=== PATIENT | male | born 1995 | race Two or more races ===

== ENCOUNTER 2018-10-24 17:33 | Emergency (ER) | payer OTHER, MEDICAID ==
[2018-10-24 17:46] VITALS: BP 144/84
[2018-10-24 18:43] LABS: Amphetamine Screen, Urine POSITIVE (NEGATIVE); Barbiturate Scree,Urine NEGATIVE (NEGATIVE); Benzodiazephine Screen, Urine NEGATIVE (NEGATIVE); Cannabinoid Screen, Urine NEGATIVE (NEGATIVE); Cocaine Screen, Urine NEGATIVE (NEGATIVE); Opiate Scree,Urine NEGATIVE (NEGATIVE); Phencyclidine Screen, Urine NEGATIVE (NEGATIVE)
[2018-10-24] MEDS ORDERED: LORazepam 0.5 MG TAB PO ONE (18:45)
[2018-10-24 19:12] LABS: Basophils # (auto) 0 uL; Basophils % (auto) 0.2 % (0.0-2.0); Eosinophils # (auto) 0 uL; Eosinophils % (auto) 0.6 % (0.0-7.0); Lymphocytes # (auto) 0.8 uL; Lymphocytes % (auto) 16.7 % (10.0-50.0); Mean Corpuscular Hemoglobin 31.3 pg (28.0-32.0); Mean Corpuscular Hgb Conc. 34.8 g/dL (32.0-36.0); Mean Corpuscular Volume 89.9 fL (80.0-100.0); Monocytes # (auto) 0.4 uL; Monocytes % (auto) 7.8 % (0.0-12.0); Neutrophils # (auto) 3.5 uL; Neutrophils % (auto) 74.7 % (37.0-80.0); Nucleated Red Blood Cells % 0.1 %; Platelet Count (auto) 312 10^3/uL (140-450); Red Blood Cells 4.79 10^6/uL (4.5-5.90); Red Cell Distribution Width 13.7 % (11.8-14.3); White Blood Cell 4.8 10^3/uL (4.4-10.8)
[2018-10-24 19:30] LABS: Albumin 4.4 g/dL (3.4-5.0); Anion Gap 4 (5-15); Blood Urea Nitrogen 14 mg/dL (7-18); Calcium 8.9 mg/dL (8.5-10.1); Carbon Dioxide 30 mmol/L (21-32); Chloride 105 mmol/L (98-107); Glucose 111 mg/dL (74-106); Magnesium 2.6 mg/dL (1.6-2.6); Potassium 3.6 mmol/L (3.5-5.1); Sodium 139 mmol/L (136-145)
[2018-10-24 19:38] LABS: Alanine Aminotransferase 75 U/L (16-61); Alkaline Phosphatase 121 U/L (45-117); Aspartate Aminotransferase 19 U/L (15-37); BUN/Creatinine Ratio 15.1; Bilirubin, Total 0.7 mg/dL (0.2-1.0); GFR African American > 60 mL/min; GFR Non-African American > 60 mL/min; Total Protein 7.6 g/dL (6.4-8.2)
== END 2018-10-24 20:02 | disposition home or self-care (01) ==
LOC: ER 17:48 → EDBD 17:48 → ER 20:02
DX: F15.10 Other stimulant abuse, uncomplicated (principal)
CPT/HCPCS: 36415; 71046; 80053; 80307; 83735; 84484; 85025; 93005

== ENCOUNTER 2020-03-14 14:15 | Emergency (ER) | payer MEDICAID, OTHER ==
[~2020-03-14] VITALS: Ht 165.1 cm; Wt 77.1 kg
[2020-03-14 14:28] VITALS: BP 132/83
[2020-03-14] MEDS ORDERED: LIDOCAINE 1% HCL (LOCAL ANESTH.) INJ 20ML MDV IJ ONE (16:15)
[2020-03-14] MEDS ORDERED: BACITRACIN INJ 50000 UNIT VIAL TOP ONE (17:00)
[2020-03-14] MEDS ORDERED: TETANUS-DIPTH-ACEL PERTUSSIS 0.5ML SYR Tdap IM ONE (17:00)
[2020-03-14] MEDS ORDERED: BACITRACIN TOP OINT 1 UD PKG TOP ONE (17:03)
== END 2020-03-14 17:10 | disposition home or self-care (01) ==
LOC: ER 14:15
DX: S61.411A Laceration without foreign body of right hand, initial encounter (principal); W22.8XXA Striking against or struck by other objects, initial encounter; Y93.89 Activity, other specified; Y92.89 Other specified places as the place of occurrence of the external cause; Y99.8 Other external cause status
CPT/HCPCS: 12001; 73130; 90471; 90715; 99283; J2001